=== PATIENT | male | born 1975 | race Caucasian/White ===

== ENCOUNTER 2017-08-22 11:17 | Outpatient (CLI) | payer MEDICAID ==
--- NOTE | 2017-08-22 19:24 | Ultrasound Report ---
EXAM: ABDOMEN ULTRASOUND LIMITED, RUQ EXAM DATE: 08/22/2017 12:25 PM. CLINICAL HISTORY: Abdominal tenderness, right upper quadrant. COMPARISON: None. TECHNIQUE: Real-time scanning was performed with static images obtained. FINDINGS: Liver: Markedly echogenic and heterogeneous liver parenchyma. No intrahepatic bile duct dilation. In the left liver lobe, there is a lobular hypoechoic region measuring 3.4 x 1.6 x 3.2 cm. No definite m ass effect or vascularity noted on color imaging. Prominent right liver lobe measures 18.8 cm. Main p ortal vein flow: Hepatopetal. Gallbladder: Large gallstone noted at the level of the gallbladder neck. Stone does not appear to move with repositioning of the patient. Per report, there was a negative sonographic Ortiz's sign. No gallbladder wall thickening or pericho lecystic fluid. Biliary System: CBD measures 4.2 mm. No intrahepatic or extrahepatic ductal dilatation. Not well seen . Right kidney: 11.3 cm. No hydronephrosis. Other: Study limited by body habitus and fatty liver. IMPRESSION: 1. Cholelithiasis. No sonographic evidence of acute cholecystitis. 2. Heterogeneous and hyperechoic liver consistent with fatty infiltration. Probable focal fat sparing in the left liver. No definite mass or intrahepatic bile duct dilation. 3. Normal common bile duct. [facility] Referring Provider Line: [phone] SITE ID: [id number]
== END 2017-08-22 11:18 | disposition home or self-care (01) ==
LOC: DI 11:17
PROVIDERS: ATTEND Nurse Practitioner Family
DX: K80.20 Calculus of gallbladder without cholecystitis without obstruction (principal)
CPT/HCPCS: 76705